=== PATIENT | male | born 1945 | race Caucasian/White ===

== ENCOUNTER 2021-01-26 17:06 | Inpatient (IN) | payer MEDICARE, OTHER ==
[~2021-01-26] VITALS: Ht 190.5 cm; Wt 85.5 kg
[2021-01-26 18:41] LABS: HEMOGLOBIN 11.1 gm/dl (14.0-17.5); RED BLOOD COUNT 3.93 M/UL (4.20-5.50); WHITE BLOOD COUNT 15.6 K/UL (4.5-11.0)
[2021-01-26 19:06] LABS: BUN/CREATININE RATIO 21 (0-10)
[2021-01-27] MEDS ORDERED: 8 HOUR PAIN RE650 MG PO (01:47)
[2021-01-27] MEDS ORDERED: ACIDOPHILUS1 EACH PO (01:50)
[2021-01-27] MEDS ORDERED: AMMONIUM LACTATE1 ML MC (01:52)
[2021-01-27] MEDS ORDERED: ECOTRIN81 MG PO (01:54)
[2021-01-27] MEDS ORDERED: CARVEDILOL3.125 MG PO (01:55)
[2021-01-27] MEDS ORDERED: FENOFIBRATE134 MG PO (01:56)
[2021-01-27] MEDS ORDERED: FLOVENT DISKUS50 MCG INH (01:57)
[2021-01-27] MEDS ORDERED: IPRAT-ALBUT 0.5-3 ML INH (01:58)
[2021-01-27] MEDS ORDERED: ZESTRIL5 MG PO (01:59)
[2021-01-27] MEDS ORDERED: ATIVAN0.5 MG PO (02:00)
[2021-01-27] MEDS ORDERED: MECLIZINE HCL12.5 MG PO (02:01)
[2021-01-27] MEDS ORDERED: MELATONIN5 M2 PO (02:02)
[2021-01-27] MEDS ORDERED: GLUCOPHAGE 500500 MG GT (02:03)
[2021-01-27] MEDS ORDERED: MIRALAX17 GM PO (02:04)
[2021-01-27] MEDS ORDERED: CENTANY AT1 EACH TP (02:05)
[2021-01-27] MEDS ORDERED: NOVOLOG 10100 UNITS1 INJ (02:06)
[2021-01-27] MEDS ORDERED: PRAVACHOL20 MG PO (02:07)
[2021-01-27] MEDS ORDERED: SANTYL OINT 3030 GM TP (02:08)
[2021-01-27] MEDS ORDERED: SENNA8.6 MG PO (02:09)
[2021-01-27] MEDS ORDERED: ZOFRAN ODT 4 MG4 MG GT (02:10)
[2021-01-27] MEDS ORDERED: BETADINE1 EACH TP (02:10)
[2021-01-27] MEDS ORDERED: EAR WAX REMOVAL15 ML OT (02:11)
[2021-01-27] MEDS ORDERED: HYDROXYZINE HCL25 MG PO (02:12)
[2021-01-27 05:51] LABS: HEMOGLOBIN 10.7 gm/dl (14.0-17.5)
[2021-01-27 16:56] LABS: HEMOGLOBIN 10.5 gm/dl (14.0-17.5)
--- NOTE | 2021-01-27 18:01 | NUR ---
TRIED MULTIPLE ATTEMPTS TO GET CONSENT FOR EGD SIGNED WITH NO SUCCESS. CALLED [facility] [employer] AND MULTIPLE MESSAGES AND NO OTHER CONTACTS LISTED FOR PT
[2021-01-28 05:07] LABS: HEMOGLOBIN 10.4 gm/dl (14.0-17.5); RED BLOOD COUNT 3.68 M/UL (4.20-5.50)
[2021-01-28 05:08] LABS: WHITE BLOOD COUNT 10.5 K/UL (4.5-11.0)
[2021-01-28 05:20] LABS: BUN/CREATININE RATIO 18 (0-10)
[2021-01-29 02:05] LABS: RED BLOOD COUNT 3.99 M/UL (4.20-5.50)
[2021-01-29 02:06] LABS: WHITE BLOOD COUNT 7.8 K/UL (4.5-11.0)
[2021-01-29 02:22] LABS: BUN/CREATININE RATIO 15 (0-10)
[2021-01-30 05:12] LABS: BUN/CREATININE RATIO 10 (0-10)
[2021-01-31 02:50] LABS: HEMOGLOBIN 11.2 gm/dl (14.0-17.5); RED BLOOD COUNT 3.87 M/UL (4.20-5.50); WHITE BLOOD COUNT 7.6 K/UL (4.5-11.0)
[2021-01-31 03:23] LABS: BUN/CREATININE RATIO 11 (0-10)
[2021-02-01 03:50] LABS: HEMOGLOBIN 11.1 gm/dl (14.0-17.5); RED BLOOD COUNT 3.96 M/UL (4.20-5.50)
[2021-02-01 04:10] LABS: BUN/CREATININE RATIO 13 (0-10)
[2021-02-01 04:14] LABS: WHITE BLOOD COUNT 9.6 K/UL (4.5-11.0)
[2021-02-03 04:10] LABS: HEMOGLOBIN 11.4 gm/dl (14.0-17.5); RED BLOOD COUNT 4.11 M/UL (4.20-5.50); WHITE BLOOD COUNT 9.4 K/UL (4.5-11.0)
[2021-02-03 04:43] LABS: BUN/CREATININE RATIO 15 (0-10)
[2021-02-04 04:16] LABS: BUN/CREATININE RATIO 14 (0-10)
[2021-02-05 03:36] LABS: HEMOGLOBIN 11.6 gm/dl (14.0-17.5); RED BLOOD COUNT 4.15 M/UL (4.20-5.50); WHITE BLOOD COUNT 9.8 K/UL (4.5-11.0)
[2021-02-05 03:51] LABS: BUN/CREATININE RATIO 17 (0-10)
[2021-02-06 10:00] LABS: HEMOGLOBIN 12.4 gm/dl (14.0-17.5); RED BLOOD COUNT 4.35 M/UL (4.20-5.50); WHITE BLOOD COUNT 9.7 K/UL (4.5-11.0)
[2021-02-06 10:12] LABS: BUN/CREATININE RATIO 16 (0-10)
[2021-02-07 03:24] LABS: HEMOGLOBIN 11.9 gm/dl (14.0-17.5); RED BLOOD COUNT 4.21 M/UL (4.20-5.50); WHITE BLOOD COUNT 11.3 K/UL (4.5-11.0)
[2021-02-07 03:50] LABS: BUN/CREATININE RATIO 14 (0-10)
[2021-02-09 03:41] LABS: HEMOGLOBIN 10.9 gm/dl (14.0-17.5); RED BLOOD COUNT 3.85 M/UL (4.20-5.50); WHITE BLOOD COUNT 8.7 K/UL (4.5-11.0)
[2021-02-09 04:10] LABS: BUN/CREATININE RATIO 16 (0-10)
[2021-02-09] MEDS ORDERED: LEVOFLOXACIN500 MG PO (11:40)
--- NOTE | 2021-02-09 15:25 | NUR ---
DRESSING CHANGE PERFORMED PER PHYSICIAN ORDER. PATIENT TOLERATED WELL.
--- NOTE | 2021-02-09 19:10 | NUR ---
PT LEFT THE FLOOR @ 1907 BY STRETCHER PER EMS IN STABLE CONDITION. V/S WNL IV AND MENDES REMOVED BY DAYSHIFT. DISCHARGE PACKET SENT WITH PT, AND REPORT HAD ALREADY BEEN CALLED TO THE RETIREMENT.
== END 2021-02-09 19:09 | DRG 853 ==
LOC: ER1 17:06 → M/S 20:07 → CDU 20:07 → PROG CARE 20:07 → M/S 02-02 23:12
PROVIDERS: Emergency Medicine; Internal Medicine; Internal Medicine Infectious Disease; Podiatrist Foot & Ankle Surgery; ADMIT Internal Medicine
PROC: 0DJ08ZZ Inspection of Upper Intestinal Tract, Via Natural or Artificial Opening Endoscopic (ICD-10-PCS; 2021-01-29)
PROC: 0Y6N0Z5 Detachment at Left Foot, Complete 2nd Ray, Open Approach (ICD-10-PCS; 2021-02-06)
PROC: 0Y6N0Z6 Detachment at Left Foot, Complete 3rd Ray, Open Approach (ICD-10-PCS; 2021-02-06)
PROC: 0Y6N0Z4 Detachment at Left Foot, Complete 1st Ray, Open Approach (ICD-10-PCS; principal; 2021-02-06 16:00)
DX: A41.9 Sepsis, unspecified organism (principal); K22.6 Gastro-esophageal laceration-hemorrhage syndrome; E43 Unspecified severe protein-calorie malnutrition; G93.41 Metabolic encephalopathy; J18.9 Pneumonia, unspecified organism; R53.2 Functional quadriplegia; K85.90 Acute pancreatitis without necrosis or infection, unspecified; M86.8X7 Other osteomyelitis, ankle and foot; N39.0 Urinary tract infection, site not specified; Z16.12 Extended spectrum beta lactamase (ESBL) resistance; E11.69 Type 2 diabetes mellitus with other specified complication; B96.4 Proteus (mirabilis) (morganii) as the cause of diseases classified elsewhere; I73.9 Peripheral vascular disease, unspecified; R53.81 Other malaise; L89.892 Pressure ulcer of other site, stage 2; L89.322 Pressure ulcer of left buttock, stage 2; E11.649 Type 2 diabetes mellitus with hypoglycemia without coma; F03.90 Unspecified dementia, unspecified severity, without behavioral disturbance, psychotic disturbance, mood disturbance, and anxiety; E11.65 Type 2 diabetes mellitus with hyperglycemia; D63.8 Anemia in other chronic diseases classified elsewhere; I25.10 Atherosclerotic heart disease of native coronary artery without angina pectoris; I11.0 Hypertensive heart disease with heart failure; I50.9 Heart failure, unspecified; Z86.73 Personal history of transient ischemic attack (TIA), and cerebral infarction without residual deficits; Z74.01 Bed confinement status; Z91.013 Allergy to seafood; Z68.23 Body mass index [BMI] 23.0-23.9, adult
CPT/HCPCS: 36415; 71045; 73630; 73718; 80048; 80053; 80202; 80307; 81001; 82140; 82550; 82553; 82607; 82746; 82962; 83036; 83605; 83690; 83735; 83880; 84100; 84484; 85014; 85018; 85025; 85610; 85652; 85730; 86140; 86141; 87040; 87070; 87077; 87086; 87186; 87205; 92526; 92610; 93005; 93926; 94760; 99285; A6212; C9113; J1335; J2001; J2250; J2405; J2543; J2704; J2795; J3010; J3370; J3480; J7030; J7040; J7070; J7120; U0002